=== PATIENT | female | born 1975 | race Caucasian/White ===

== ENCOUNTER → 2016-10-29 | Outpatient (CLI) | payer BC ==
[~2016-10-29] MED LIST: ALBUAER2 INH; BUPR-79 PO; BUTA1CAP17; CLC100 PO; DILT300C35; INSU70IN2 SC; MTR600X PO; OXYC-57 PO; PREN1TAB29; PRENTAB26 PO; RIZA10TA18 PO; SERT25TA PO
[2016-10-29 21:01] LABS: GTGD 50 Grams
[2016-10-31 16:25] LABS: AFP CONCENTRATION 37.9 NG/ML; AFP MULTIPLE OF MEDIAN 1.17; AFPTS GESTATIONAL AGE 16.4 WEEKS; AFPTS INSULIN DEP DIABETIC? NO; AFPTS MATERNAL WT 165 LBS; ALPHA-FETOPROTEIN RACE CAUCASIAN=W; HISTORY OF NTD NO; REPEAT SAMPLE? NO
== END | disposition home or self-care (01) ==
LOC: C.LAB1850 16:59
PROVIDERS: ATTEND Obstetrics & Gynecology
DX: O09.292 Supervision of pregnancy with other poor reproductive or obstetric history, second trimester (principal)

== ENCOUNTER → 2017-01-14 | Outpatient (CLI) | payer BC | END | disposition home or self-care (01) | LOC: C.LAB1850 07:00 | PROVIDERS: ATTEND Obstetrics & Gynecology | DX: O28.1 Abnormal biochemical finding on antenatal screening of mother (principal) ==

== ENCOUNTER → 2017-01-19 | Outpatient (CLI) | payer BC ==
[2017-01-19 17:52] LABS: URINE APPEARANCE CLEAR (CLEAR); URINE BILIRUBIN NEG (NEG); URINE COLOR YELLOW; URINE NITRITE NEG (NEG); URINE SPECIFIC GRAVITY 1.009 (1.000-1.030); UROBILINOGEN NEG (NEG)
[2017-01-19 18:03] LABS: MANUAL MICROSCOPIC REQUIRED? NO; REVIEW REQ? NO
== END | disposition home or self-care (01) ==
LOC: C.LABSPEC 17:33
PROVIDERS: ATTEND Obstetrics & Gynecology
DX: O09.522 Supervision of elderly multigravida, second trimester (principal); O24.419 Gestational diabetes mellitus in pregnancy, unspecified control; O10.012 Pre-existing essential hypertension complicating pregnancy, second trimester; Z3A.00 Weeks of gestation of pregnancy not specified

== ENCOUNTER → 2017-01-19 | Outpatient (CLI) | payer BC ==
[2017-01-19 16:49] LABS: HEMATOCRIT 34.4 % (37-47)
== END | disposition home or self-care (01) ==
LOC: C.LAB1850 15:14
PROVIDERS: ATTEND Obstetrics & Gynecology
DX: Z29.13 Encounter for prophylactic Rho(D) immune globulin (principal); O34.219 Maternal care for unspecified type scar from previous cesarean delivery; O10.412 Pre-existing secondary hypertension complicating pregnancy, second trimester; O09.522 Supervision of elderly multigravida, second trimester; Z3A.00 Weeks of gestation of pregnancy not specified; I15.9 Secondary hypertension, unspecified

== ENCOUNTER → 2017-02-12 | Outpatient (CLI) | payer BC ==
[2017-02-12 12:29] LABS: BASO % 0.2 %; BASO ABS # 0.02 K/uL (0-0.2); COMPLETE YES; EOS % 0.6 %; HEMATOCRIT 38.8 % (37-47); IG% 1.2 %; LYMPH % 19.5 %; LYMPH ABS # 2.45 K/uL (1.2-3.4); MEAN CELL VOLUME 93.3 fL (80-100); MEAN CORPUSCULAR HEMOGLOBIN 31.5 pg (25-34); MEAN CORPUSCULAR HGB CONC 33.8 g/dl (32-36); MEAN PLATELET VOLUME 10.3 fL (7.4-10.4); MONO % 8.9 %; NEUT % 69.6 %; PLATELET COUNT 251 K/uL (130-400); RED BLOOD COUNT 4.16 M/uL (4.2-5.4); WHITE BLOOD COUNT 12.58 K/uL (4.8-10.8)
[2017-02-12 12:58] LABS: CALCIUM 8.9 mg/dl (8.5-10.1)
[2017-02-12 12:59] LABS: ALT/SGPT 26 U/L (12-78); AST/SGOT 18 U/L (15-37); BLOOD UREA NITROGEN 10 mg/dl (7-18); BUN/CREATININE RATIO 16.2 (10-20); CARBON DIOXIDE 24 mmol/L (21-32); CHLORIDE 105 mmol/L (98-107); CREATININE 0.63 mg/dl (0.60-1.20); GLUCOSE 78 mg/dl (70-99); SODIUM 139 mmol/L (136-145)
[2017-02-12 13:01] LABS: ALB/GLOB RATIO 0.5 (0.9-2); ALKALINE PHOSPHATASE 94 U/L (45-117)
== END ==
LOC: C.LAB 10:58
PROVIDERS: ATTEND Nurse Practitioner
DX: R42 Dizziness and giddiness (principal); O24.419 Gestational diabetes mellitus in pregnancy, unspecified control; R25.2 Cramp and spasm; J02.9 Acute pharyngitis, unspecified; M54.5 Low back pain; E83.119 Hemochromatosis, unspecified

== ENCOUNTER → 2017-02-28 | Outpatient (CLI) | payer BC ==
[2017-02-28 08:37] LABS: PATIENT HEIGHT 162.6 cm
[2017-02-28 09:35] LABS: BASO % 0.2 %; BASO ABS # 0.02 K/uL (0-0.2); COMPLETE YES; EOS % 0.6 %; HEMATOCRIT 36.1 % (37-47); IG% 1.4 %; LYMPH % 19.6 %; LYMPH ABS # 2.11 K/uL (1.2-3.4); MEAN CELL VOLUME 91.4 fL (80-100); MEAN CORPUSCULAR HEMOGLOBIN 31.9 pg (25-34); MEAN CORPUSCULAR HGB CONC 34.9 g/dl (32-36); MEAN PLATELET VOLUME 9.7 fL (7.4-10.4); MONO % 7.8 %; NEUT % 70.4 %; PLATELET COUNT 233 K/uL (130-400); RED BLOOD COUNT 3.95 M/uL (4.2-5.4); WHITE BLOOD COUNT 10.78 K/uL (4.8-10.8)
[2017-02-28 09:51] LABS: CREATININE 0.69 mg/dl (0.60-1.20)
[2017-02-28 10:21] LABS: URINE TOTAL PROTEIN 10.1 mg/dl (0-11.9)
[2017-02-28 12:15] LABS: CREATININE 0.69 mg/dl (0.6-1.2)
== END ==
LOC: C.LAB1850 08:26
PROVIDERS: ATTEND Obstetrics & Gynecology
DX: O10.913 Unspecified pre-existing hypertension complicating pregnancy, third trimester (principal)

== ENCOUNTER → 2017-03-09 | Outpatient (CLI) | payer BC ==
[2017-03-09 17:36] LABS: BASO % 0.2 %; BASO ABS # 0.02 K/uL (0-0.2); COMPLETE YES; EOS % 0.5 %; HEMATOCRIT 38.1 % (37-47); LYMPH % 25.5 %; LYMPH ABS # 3.05 K/uL (1.2-3.4); MEAN CELL VOLUME 90.9 fL (80-100); MEAN CORPUSCULAR HGB CONC 34.1 g/dl (32-36); MEAN PLATELET VOLUME 10.2 fL (7.4-10.4); MONO % 11.2 %; NEUT % 61.6 %; PLATELET COUNT 245 K/uL (130-400); RED BLOOD COUNT 4.19 M/uL (4.2-5.4); WHITE BLOOD COUNT 11.94 K/uL (4.8-10.8)
[2017-03-09 17:43] LABS: CREATININE 0.64 mg/dl (0.60-1.20); URIC ACID 3.8 mg/dl (2.6-7.2)
[2017-03-09 17:47] LABS: ALKALINE PHOSPHATASE 138 U/L (45-117); ALT/SGPT 22 U/L (12-78); AST/SGOT 20 U/L (15-37)
== END ==
LOC: C.LAB1850 16:21
PROVIDERS: ATTEND Obstetrics & Gynecology
DX: O10.913 Unspecified pre-existing hypertension complicating pregnancy, third trimester (principal); Z3A.00 Weeks of gestation of pregnancy not specified

== ENCOUNTER → 2017-03-17 | Outpatient (CLI) | payer BC | END | disposition home or self-care (01) | LOC: C.LABSPEC 15:20 | PROVIDERS: ATTEND Obstetrics & Gynecology | DX: O24.414 Gestational diabetes mellitus in pregnancy, insulin controlled (principal); Z3A.00 Weeks of gestation of pregnancy not specified; Z79.4 Long term (current) use of insulin ==

== ENCOUNTER → 2017-03-17 | Outpatient (CLI) | payer BC ==
[2017-03-17 15:17] LABS: HEMATOCRIT 37.8 % (37-47); MEAN CELL VOLUME 89.8 fL (80-100); MEAN CORPUSCULAR HEMOGLOBIN 31.1 pg (25-34); MEAN CORPUSCULAR HGB CONC 34.7 g/dl (32-36); MEAN PLATELET VOLUME 9.9 fL (7.4-10.4); PLATELET COUNT 245 K/uL (130-400); RED BLOOD COUNT 4.21 M/uL (4.2-5.4)
[2017-03-17 15:38] LABS: ALT/SGPT 24 U/L (12-78); AST/SGOT 20 U/L (15-37); BLOOD UREA NITROGEN 12 mg/dl (7-18); BUN/CREATININE RATIO 18.4 (10-20); CALCIUM 9.5 mg/dl (8.5-10.1); CARBON DIOXIDE 24 mmol/L (21-32); CHLORIDE 107 mmol/L (98-107); CREATININE 0.65 mg/dl (0.60-1.20); GLUCOSE 73 mg/dl (70-99); POTASSIUM 3.7 mmol/L (3.5-5.1); SODIUM 139 mmol/L (136-145)
[2017-03-17 15:41] LABS: ALB/GLOB RATIO 0.6 (0.9-2); ALKALINE PHOSPHATASE 159 U/L (45-117)
== END | disposition home or self-care (01) ==
LOC: C.LAB1850 14:20
PROVIDERS: ATTEND Obstetrics & Gynecology
DX: O10.913 Unspecified pre-existing hypertension complicating pregnancy, third trimester (principal); Z3A.00 Weeks of gestation of pregnancy not specified; O24.414 Gestational diabetes mellitus in pregnancy, insulin controlled; Z79.4 Long term (current) use of insulin

== ENCOUNTER → 2017-03-25 | Outpatient (CLI) | payer BC ==
[2017-03-25 15:38] LABS: BASO % 0.2 %; BASO ABS # 0.03 K/uL (0-0.2); COMPLETE YES; EOS % 0.2 %; HEMATOCRIT 38.5 % (37-47); IG% 0.9 %; LYMPH % 18.7 %; MEAN CELL VOLUME 89.7 fL (80-100); MEAN CORPUSCULAR HGB CONC 34.5 g/dl (32-36); MEAN PLATELET VOLUME 10.1 fL (7.4-10.4); MONO % 8.7 %; NEUT % 71.3 %; PLATELET COUNT 226 K/uL (130-400); RED BLOOD COUNT 4.29 M/uL (4.2-5.4)
[2017-03-25 16:08] LABS: ALKALINE PHOSPHATASE 167 U/L (45-117); ALT/SGPT 24 U/L (12-78); AST/SGOT 24 U/L (15-37); URIC ACID 3.8 mg/dl (2.6-7.2)
== END | disposition home or self-care (01) ==
LOC: C.LAB1850 14:22
PROVIDERS: ATTEND Obstetrics & Gynecology
DX: O10.913 Unspecified pre-existing hypertension complicating pregnancy, third trimester (principal)

== ENCOUNTER 2017-04-01 13:43 | Outpatient (CLI) | payer BC ==
[~2017-04-01 13:43] MED LIST changes: -BUTA1CAP17; -CLC100 PO; -DILT300C35; -INSU70IN2 SC; -MTR600X PO; -OXYC-57 PO; -PREN1TAB29; -SERT25TA PO
[2017-04-01] MEDS ORDERED: BUTALBITAL/ACETAMIN/CAFFEINE TAB PO ONE (15:00)
[2017-04-08] MEDS ORDERED: MTR600X PO (07:38)
[2017-04-08] MEDS ORDERED: OXYC-57 PO (07:38)
[2017-04-08] MEDS ORDERED: CLC100 PO (07:38)
== END 2017-04-01 15:30 | disposition home or self-care (01) ==
LOC: C.LD 13:43 → C.OPB 13:43
PROVIDERS: ATTEND Obstetrics & Gynecology
DX: O09.523 Supervision of elderly multigravida, third trimester (principal); Z3A.38 38 weeks gestation of pregnancy; O16.3 Unspecified maternal hypertension, third trimester; O24.419 Gestational diabetes mellitus in pregnancy, unspecified control

== ENCOUNTER → 2017-04-01 | Outpatient (CLI) | payer BC ==
[2017-04-01 16:17] LABS: HEMATOCRIT 39.6 % (37-47); MEAN CORPUSCULAR HEMOGLOBIN 31.1 pg (25-34); MEAN PLATELET VOLUME 10.4 fL (7.4-10.4); PLATELET COUNT 219 K/uL (130-400); WHITE BLOOD COUNT 12.98 K/uL (4.8-10.8)
[2017-04-01 16:42] LABS: MEAN CORPUSCULAR HGB CONC 34.6 g/dl (32-36)
[2017-04-01 17:08] LABS: ALB/GLOB RATIO 0.5 (0.9-2); ALKALINE PHOSPHATASE 178 U/L (45-117); ALT/SGPT 23 U/L (12-78); AST/SGOT 21 U/L (15-37); BLOOD UREA NITROGEN 10 mg/dl (7-18); BUN/CREATININE RATIO 13.3 (10-20); CALCIUM 8.9 mg/dl (8.5-10.1); CARBON DIOXIDE 21 mmol/L (21-32); CHLORIDE 106 mmol/L (98-107); CREATININE 0.79 mg/dl (0.60-1.20); GLUCOSE 81 mg/dl (70-99); SODIUM 138 mmol/L (136-145)
== END | disposition home or self-care (01) ==
LOC: C.LAB1850 15:38
PROVIDERS: ATTEND Obstetrics & Gynecology
DX: O10.913 Unspecified pre-existing hypertension complicating pregnancy, third trimester (principal)

== ENCOUNTER → 2017-04-06 | Outpatient (CLI) | payer BC ==
[~2017-04-06] MED LIST changes: +BUTA1CAP17; +CLC100 PO; +DILT300C35; +INSU70IN2 SC; +MTR600X PO; +OXYC-57 PO; +PREN1TAB29; +SERT25TA PO
== END | disposition home or self-care (01) ==
LOC: C.LAB1850 15:25
PROVIDERS: ATTEND Obstetrics & Gynecology
DX: Z01.818 Encounter for other preprocedural examination (principal)

== ENCOUNTER 2017-04-07 05:25 | Inpatient (IN) | payer BC ==
--- NOTE | 2017-04-06 16:25 | HISTORY & PHYSICAL EXAMINATION ---
DATE OF ADMISSION: 04/07/2017 PRINCIPAL DIAGNOSES: Intrauterine at 39 weeks, insulin controlled gestational diabetes, maternal chronic hypertension, migraine headaches. PRINCIPAL PROCEDURE: Repeat low transverse cervical section. HISTORY OF PRESENT ILLNESS: The patient is a 41-year-old 3, para 1-0-1-1 white female, EDC of 04/17/2017 who presents at 39-2/7 weeks for repeat section. First section was done in 1995 because of a breech presentation. She is requesting repeat section at this time. had been complicated by insulin controlled gestational diabetes and chronic hypertension prior to the . She also has a history of migraine headaches which have now started to become more poorly controlled with recent meds. She understands the risks of procedure and is willing to proceed. 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 ALLERGIES: AMLODIPINE WHICH CAUSES SWELLING. MEDICATIONS: Diltiazem 300 mg at bedtime, Wellbutrin-SR 150 mg b.i.d. sertraline 25 mg every day, vitamin and Novolin insulin. PAST SURGICAL HISTORY: D&C in 2016, section in 1995 and wisdom teeth removed as a child. HISTORY: Blood type is A negative, antibody screen is negative. Rubella is immune. RPR is nonreactive. Hepatitis is negative. HIV is negative. Hemoglobin at 28 weeks' was 12.3, hematocrit of 34.4, Panorama was normal results. Ultrasounds have been done for growth, most recent growth shows an abdominal circumference of 82 percentile, estimated weight of 68th percentile, AFIs have been within normal limits. Nonstress tests have been reactive. GBS is negative. SOCIAL HISTORY: She does not smoke or drink. FAMILY HISTORY: Noncontributory. OBSTETRICAL AND GYNECOLOGICAL HISTORY: Periods have been regular every 29 days. No history of PID, VD or herpes. Pap smears have been within normal limits. in 1995, delivered by section because of a breech presentation of a 6 pound 7 ounce infant without complications. In 2015 a miscarriage which was treated with a D&E at 8 weeks. PHYSICAL EXAMINATION: VITAL SIGNS: Blood pressure is 132/84. Urine is negative for proteinuria. GENERAL: The patient is a well-developed, well-nourished white female in no apparent distress. LUNGS: Clear to auscultation. HEART: Regular rate and rhythm. No murmurs or gallops. ABDOMEN: Gravid and consistent with a term in size. Fundal heights measuring 39 cm. There is no hepatosplenomegaly or masses palpable. She has a well-healed low transverse skin incision. EXTREMITIES: Show 1+ edema of the ankles. No calf tenderness is present. PELVIC: Deferred. ASSESSMENT: A 41-year-old now for repeat section. Prior section was done for breech presentation. She understands the risks of procedure and is willing to proceed. All her questions were answered at the time of her preoperative visit. Please see the orders for further directions.
[2017-04-07] VITALS (12 sets, daily range): BP systolic 117–137; BP diastolic 62–77; PULSE 61–72; TEMP 36.5–36.9; O2SAT 96–99; Ht 160 cm; Wt 85.5 kg
[~2017-04-07] VITALS: Ht 160 cm; Wt 85.5 kg
[~2017-04-07 05:25] MED LIST changes: -BUTA1CAP17; -CLC100 PO; -DILT300C35; -INSU70IN2 SC; -MTR600X PO; -OXYC-57 PO; -PREN1TAB29; -SERT25TA PO
[2017-04-07 05:52] LABS: BASO % 0.4 %; BASO ABS # 0.05 K/uL (0-0.2); EOS % 0.5 %; HEMATOCRIT 42.6 % (37-47); LYMPH % 26.6 %; LYMPH ABS # 3.28 K/uL (1.2-3.4); MEAN CELL VOLUME 89.1 fL (80-100); MEAN CORPUSCULAR HEMOGLOBIN 29.1 pg (25-34); MEAN PLATELET VOLUME 9.8 fL (7.4-10.4); MONO % 6.6 %; NEUT % 64.9 %; PLATELET COUNT 244 K/uL (130-400); RED BLOOD COUNT 4.78 M/uL (4.2-5.4); WHITE BLOOD COUNT 12.31 K/uL (4.8-10.8)
[2017-04-07 05:58] LABS: COMPLETE YES; MEAN CORPUSCULAR HGB CONC 32.6 g/dl (32-36)
[2017-04-07] MEDS ORDERED: CEFAZOLIN IV 2,000 MG in DEXTROSE 5% 50ML IV SCH (06:00)
[2017-04-07] MEDS ORDERED: LACTATED RINGER'S 1000ML 1,000 ML IV SCH (06:00)
[2017-04-07] MEDS ORDERED: CITRIC ACID/SODIUM CITRATE 15 ML UDC PO SCH (06:00)
[2017-04-07] MEDS ORDERED: INSU70IN2 SC (06:21)
[2017-04-07] MEDS ORDERED: DILT300C35 (06:25)
[2017-04-07] MEDS ORDERED: SERT25TA PO (06:25)
[2017-04-07] MEDS ORDERED: PREN1TAB29 (06:25)
[2017-04-07] MEDS ORDERED: BUTA1CAP17 (06:25)
[2017-04-07] MEDS ORDERED: ATROPINE SULFATE 0.1 MG/ML 5ML SYR IV PRN (07:15)
[2017-04-07] MEDS ORDERED: EpHEDrine SULFATE INJ 50 MG/ML AMP IV PRN ×2 (07:15→09:00)
[2017-04-07] MEDS ORDERED: FENTANYL CITRATE INJ 50 MCG/1 ML 2 ML VIAL IV PRN (07:15)
[2017-04-07] MEDS ORDERED: ONDANSETRON INJ 2 MG/ML 2 ML VIAL IV PRN ×2 (07:15→09:00)
[2017-04-07] MEDS ORDERED: OXYTOCIN INJ 10 UNITS/ML VIAL ONE (07:17)
[2017-04-07] MEDS ORDERED: MoRPHine SULFATE PF 1 MG/ML 10 ML AMP/VIAL ONE (07:17)
[2017-04-07] MEDS ORDERED: ONDANSETRON INJ 2 MG/ML 2 ML VIAL ONE (07:17)
[2017-04-07] MEDS ORDERED: FENTANYL CITRATE INJ 50 MCG/1 ML 2 ML VIAL ONE (07:17)
--- NOTE | 2017-04-07 07:18 | History & Physical Bridge Note ---
H&P Re-Evaluation Bridge Note: I have examined the patient, reviewed the History & Physical and in the interval since the performance of the History & Physical I have noted the following changes of clinical significance: No changes noted
[2017-04-07] MEDS ORDERED: PHENYLEPHRINE 100MCG/ML 5ML SYR ONE (08:04)
[2017-04-07] MEDS ORDERED: LANOLIN OINT EXT PRN ×2 (08:45)
[2017-04-07] MEDS ORDERED: MAGNESIUM HYDROXIDE SUSP 30 ML UDC PO PRN (08:45)
[2017-04-07] MEDS ORDERED: SENNA 8.6 MG TAB PO PRN (08:45)
[2017-04-07] MEDS ORDERED: ALBUTEROL HFA 8 GM INHALER INH PRN (08:45)
--- NOTE | 2017-04-07 08:48 | Medical Student: [facility] ---
Immediate Operative Summary Operative Date Apr 07, 2017. Pre-Operative Diagnosis IUP at 39-2/7 weeks, hx of C/S, HTN, insulin controlled GDM Post-Operative Diagnosis Same Procedure(s) Performed repeat lower transverse Section Surgeon Aleisha Leiva Drama Professor Surgeon(s) Nirav London M.D., Brittany Bradshaw MS3 Estimated Blood Loss 500 cc Findings Normal uterus, fallopian tubes, and ovaries bilaterally. Delivery of baby girl with scores of 9 and 10 weighing 7 lbs 6 oz. Fluids (cc crystalloids) 1300 cc Specimens Placenta and cord blood Drains 100 cc urine Anesthesia Spinal Complication(s) None Disposition L&D
--- NOTE | 2017-04-07 08:51 | [facility] Post Operative Brief Note ---
Immediate Operative Summary Operative Date Apr 07, 2017. Pre-Operative Diagnosis 39week IUP, insulinGDM, chronic HTN, previous C/S Post-Operative Diagnosis same+ delivery or a 7 lbs 6 ozs viable female Procedure(s) Performed repeat LTCS Surgeon Juliet Scott MD Customs And Immigration Officer Surgeon(s) Krishna oLndon PGY1 Estimated Blood Loss 500 Findings gravid uterus normal tubes & ovaries Fluids (cc crystalloids) 1300 Specimens Placenta Drains Nuñez to straight drainage- clear urine at the end of the case Anesthesia SAB Complication(s) None Disposition L&D
[2017-04-07] MEDS ORDERED: NO NARCOTICS OR SEDATIVES SCH (09:00)
[2017-04-07] MEDS ORDERED: NALOXONE HCL INJ 1 MG in SODIUM CHLORIDE 0.9% 1000ML 1,000 ML IV PRN (09:00)
[2017-04-07] MEDS ORDERED: DiphenhydrAMINE HCL 50 MG/ML VIAL IV PRN (09:00)
[2017-04-07] MEDS ORDERED: LACTATED RINGER'S 1000ML 500 ML IV PRN (09:00)
[2017-04-07] MEDS ORDERED: NALOXONE HCL 0.4 MG/1 ML VIAL/CARP IV PRN (09:00)
[2017-04-07] MEDS ORDERED: SODIUM CHLORIDE 0.9% 1000ML 1,000 ML IV PRN (09:00)
[2017-04-07] MEDS ORDERED: NALOXONE HCL INJ 0.08 MG in SYRINGE 1.8 ML IV PRN (09:00)
[2017-04-07] MEDS ORDERED: NALBUPHINE HCL INJ 10 MG/ML AMP IV PRN (09:00)
[2017-04-07] MEDS ORDERED: MoRPHine SULFATE PF 1 MG/ML 10 ML AMP/VIAL EPI PRN (09:00)
--- NOTE | 2017-04-07 09:02 | Anesthesiology Progress Note ---
Anesthesia Post Op Note Date & Time Apr 07, 2017 at 09:01 Notes Mental Status: alert / awake / arousable, participated in evaluation Pt Amnestic to Procedure: Yes Nausea / Vomiting: adequately controlled Pain: adequately controlled Airway Patency, RR, SpO2: stable & adequate BP & HR: stable & adequate Hydration State: stable & adequate Neuraxial Anesthesia: was administered, sensory block is resolving Anesthetic Complications: no major complications apparent
[2017-04-07] MEDS: OXYTOCIN INJ 20 UNITS in LACTATED RINGER'S 1000ML 1,000 ML IV SCH ×2 (10:32→19:38)
[2017-04-07] MEDS: KETOROLAC TROMETHAMINE 30 MG/ML VIAL IV. PRN ×2 (10:41→16:09)
--- NOTE | 2017-04-07 11:52 | OPERATIVE REPORT ---
DATE OF OPERATION: 04/07/2017 PREOPERATIVE DIAGNOSES: Intrauterine at 39 weeks, insulin controlled gestational diabetes, chronic hypertension and previous section. POSTOPERATIVE DIAGNOSIS: Same plus delivery of a viable female infant, 7 pounds 6 ounces, Apgars 9 and 10. PROCEDURE: Repeat low transverse cervical section. SURGEON: Dr. Juliet Scott. AUTOMOTIVE PARTS COORDINATOR: Dr. Krishna London, PGY1 and Ingris Bradshaw, medical student year 3. ANESTHESIA: Subarachnoid block. BLOOD LOSS: 500 mL. HISTORY OF PRESENT ILLNESS: The patient is a 41-year-old 3, para 1-0-1-1 white female, EDC of 04/17/2017 who presents at 39-2/7 weeks for repeat section. First section was done in 1995 because of breech presentation. She is requesting repeat section at this time. She understands the risks of procedure and is willing to proceed. GROSS FINDINGS: Uterus is gravid and consistent with a term in size. Bilateral ovaries and fallopian tubes are grossly normal. OPERATION AND FINDINGS: PROCEDURE: After the patient received adequate subarachnoid block, she was prepped and draped in the usual sterile fashion. A low transverse skin incision was made with the scalpel and carried to the fascia with the same scalpel. The fascial incision was then extended with Skinner scissors. The edges were grasped with Karthik clamps. The underlying rectus muscle was bluntly and sharply dissected off the overlying fascia. The rectus muscles were bluntly divided in the midline and the underlying peritoneum elevated and entered sharply. The bladder was then taken down off the anterior surface of the uterus with Metzenbaum scissors and placed behind the bladder blade. The lower uterine segment was entered with the scalpel and extended transversely. Membranes are ruptured for clear fluid. The infant was delivered from the vertex presentation with moderate fundal pressure. There was spontaneous cry upon delivery of the head. Mouth and nasopharynx were suctioned and then the rest of the infant was delivered without difficulty. Cord was clamped and cut and the infant was handed off to Dr. Robles who was in attendance as box builder. The placenta was then expressed intact with a 3-vessel cord. The uterine cavity was explored and found to be free of any placental tissue or membranes. Uterus was exteriorized and covered under clean lap sponge. After exploring the uterine cavity and found to be free of any tissue or clot the uterus was closed in 2 layers in a running locking imbricating fashion with 0 Monocryl. Hemostasis was noted to be excellent. The posterior cul-de-sac was irrigated with normal saline. The incision was then examined once more and continued to have excellent hemostasis. The gutters were checked for any clot or tissue and they were clear. The uterus was placed back inside the abdominal cavity. The incision was examined for a final time and continued to have excellent hemostasis. The anterior cul-de-sac was irrigated with normal saline. The rectus muscles were closed in the midline with 0 Monocryl. The fascia was closed in a running fashion with 0 Vicryl. The skin edges reapproximated using 4-0 Vicryl in a subcuticular manner after irrigating the adipose layer. Mother and infant tolerated the procedure well. Urine was clear at the end of the case. I attest to the content of the Intraoperative Record and any orders documented therein. Any exception s are noted below.
[2017-04-07] MEDS: SIMETHICONE 80 MG CHEW PO SCH ×3 (12:00→20:03)
[2017-04-07] MEDS: MEPERIDINE HCL 25 MG/ML CARP IV PRN ×2 (12:21→20:00)
[2017-04-07] MEDS ORDERED: NURSING VERBAL MED ORDER ONE (18:15)
[2017-04-07] MEDS: DOCUSATE SODIUM 100 MG CAP PO SCH (20:03)
[2017-04-07] MEDS: DILTIAZEM HCL (TIAzac) 180 MG CAPCR PO SCH (20:03)
[2017-04-07] MEDS: DILTIAZEM HCL 120 MG EXT REL CAP PO SCH (20:03)
[2017-04-08] MEDS: ONDANSETRON INJ 2 MG/ML 2 ML VIAL IV PRN ×2 (01:29→06:28)
[2017-04-08] MEDS: IBUPROFEN 600 MG TAB PO PRN ×6 (01:37→22:19)
[2017-04-08] MEDS: OXYCODONE/ACETAMINOPHEN 5-325 TAB PO PRN ×6 (01:38→22:20)
[2017-04-08] MEDS ORDERED: PROMETHAZINE HCL INJ 25 MG in SODIUM CHLORIDE 0.9% 50ML 50 ML IV PRN (01:45)
[2017-04-08] MEDS ORDERED: MEPERIDINE HCL 50 MG/ML CARP IV PRN ×2 (01:45)
[2017-04-08] MEDS ORDERED: DC INTRASPINAL MORPHINE ONE (01:45)
[2017-04-08] MEDS ORDERED: ZOLPIDEM TARTRATE 5 MG TAB PO PRN (01:45)
[2017-04-08] MEDS ORDERED: KETOROLAC TROMETHAMINE 30 MG/ML VIAL IV. PRN (01:45)
[2017-04-08] MEDS ORDERED: DiphenhydrAMINE HCL 50 MG/ML VIAL IV PRN (01:45)
[2017-04-08 04:15] VITALS: BP 113/53; PULSE 72; TEMP 36.8; O2SAT 96
--- NOTE | 2017-04-08 06:43 | Medical Student: [facility] ---
Med Student INSERTER PROMOTIONAL ITEM Progress Nt Date of Service Apr 08, 2017. Subjective conversation w/ patient, physical exam, lab review Ambulation: limited ambulation Voiding: snyder catheter in place Passing Gas: Yes Diet Tolerance: Regular Diet, Nausea/Vomiting (nausea, no vomiting) Lochia: Small Feeding Type: Bottle Feeding Notes: Hailey is a 41-year-old with a history of insulin controlled gestational diabetes, chronic hypertension, and migraines postoperative day 1 for lower transverse Section. She says that she had a "rough night" due to abdominal pain, dizziness, and headaches. She reports that she has always had migraines, and today her headache is behind her right eye. Prior to , her headaches were treated with Topamax, but she was treated with Floricet prenatally. Floricet has been "somewhat helpful" for her. Yesterday she was hypoglycemic with a rojas of 60. Currently she says "I don't feel myself, but I could just be hungry." Hailey voiced concern about depression and said that she has already begun taking Zoloft at 25 mg and will titrate up to 50 mg this Tuesday. She said that she wants to continue with this antidepressant as well as return to her pre- dosages of her other medications. Review of Systems Constitutional: + chills, No fever Respiratory: No shortness of breath Cardiac: No chest pain, No palpitations Breast: No problem reported Abdomen: + nausea, No vomiting Objective Vital Signs Date Time Temp Pulse Resp B/P (MAP) Pulse Ox O2 Delivery O2 Flow Rate FiO2 04/08/17 04:15 36.8 72 16 113/53 (73) 96 Room Air 04/07/17 23:40 16 98 04/07/17 23:40 36.8 72 18 124/62 (82) 98 Room Air 04/07/17 23:40 98 Room Air 04/07/17 21:17 18 98 04/07/17 21:16 36.6 71 16 128/71 (90) 98 Room Air 04/07/17 18:00 20 98 04/07/17 17:00 22 96 04/07/17 16:00 36.6 61 20 133/77 (95) 99 Room Air 04/07/17 16:00 99 Room Air 04/07/17 16:00 20 99 04/07/17 14:50 18 98 04/07/17 14:50 36.9 68 18 123/74 (90) 98 Room Air 04/07/17 13:50 20 99 04/07/17 13:50 36.5 69 20 132/72 (92) 97 Room Air 04/07/17 12:50 36.8 66 18 117/66 (83) 98 Room Air 04/07/17 12:20 18 99 04/07/17 12:20 36.6 67 18 137/71 (93) 99 Room Air 04/07/17 11:50 36.7 68 18 137/69 (91) 97 Room Air 04/07/17 11:15 18 99 04/07/17 11:15 99 Room Air 04/07/17 11:15 36.7 66 18 136/77 (96) 99 Room Air Physical Exam General Appearance: uncomfortable, in pain Respiratory/Chest: lungs clear, normal breath sounds Cardiovascular: regular rate, rhythm, no gallop, + systolic murmur Abdomen: normal bowel sounds, + tenderness (lower quadrants) Fundus: Firm, Relation to Umbilicus (2 finger breadths above the umbilicus) Extremities: no pedal edema Laboratory Results Last 24 Hours Test 04/07/17 16:28 04/07/17 16:39 04/07/17 16:57 04/07/17 17:21 Bedside Glucose 57 mg/dl 60 mg/dl 78 mg/dl 79 mg/dl Test 04/07/17 17:49 04/08/17 01:25 04/08/17 06:00 Bedside Glucose 102 mg/dl 125 mg/dl Assessment and Plan Post-Op Day Number: 1 Continue Routine Care: Hailey is a 41-year-old with a history of insulin controlled gestational diabetes, chronic hypertension, and migraines postoperative day 1 for lower transverse Section. - Continue routine care - Encourage ambulation today - Remove Snyder catheter - Encourage fluid intake - Discuss medication changes for the period
--- NOTE | 2017-04-08 06:56 | Progress Note ---
Subjective Apr 08, 2017. Subjective conversation w/ patient, physical exam Ambulation: limited ambulation Voiding: snyder catheter in place Passing Gas: Yes Diet Tolerance: NPO Lochia: Small Feeding Type: Bottle Feeding Pain: moderate, controlled [facility] pain meds Comment: Patient says she had a rough night as she felt dizzy, had a headache and felt nauseated. She typically takes topamax for her migraines but during her has been taking fioricet which has been controlling her migraines adequately. She did have a glucose level of 60 yesterday afternoon but that has improved overnight. Her most recent glucose level was 125. She says that she will most likely feel better after she has eaten this morning. She has a history of depression and has started zoloft post and will be increasing dose to 50mg on Tuesday. Review of Systems Constitutional: + chills, + weakness, No fever, No sweats Respiratory: No cough, No shortness of breath Cardiac: No chest pain, No edema, No palpitations Breast: No nipple discharge, No breast pain Abdomen: + pain, + nausea, + constipation, No vomiting migraine headache Objective Vital Signs Date Time Temp Pulse Resp B/P (MAP) Pulse Ox O2 Delivery O2 Flow Rate FiO2 04/08/17 04:15 36.8 72 16 113/53 (73) 96 Room Air 04/07/17 23:40 16 98 04/07/17 23:40 36.8 72 18 124/62 (82) 98 Room Air 04/07/17 23:40 98 Room Air 04/07/17 21:17 18 98 04/07/17 21:16 36.6 71 16 128/71 (90) 98 Room Air 04/07/17 18:00 20 98 04/07/17 17:00 22 96 04/07/17 16:00 36.6 61 20 133/77 (95) 99 Room Air 04/07/17 16:00 99 Room Air 04/07/17 16:00 20 99 04/07/17 14:50 18 98 04/07/17 14:50 36.9 68 18 123/74 (90) 98 Room Air 04/07/17 13:50 20 99 04/07/17 13:50 36.5 69 20 132/72 (92) 97 Room Air 04/07/17 12:50 36.8 66 18 117/66 (83) 98 Room Air 04/07/17 12:20 18 99 04/07/17 12:20 36.6 67 18 137/71 (93) 99 Room Air 04/07/17 11:50 36.7 68 18 137/69 (91) 97 Room Air 04/07/17 11:15 18 99 04/07/17 11:15 99 Room Air 04/07/17 11:15 36.7 66 18 136/77 (96) 99 Room Air Physical Exam General Appearance: WELL-APPEARING, NO APPARENT DISTRESS Respiratory/Chest: lungs clear, no accessory muscle use Cardiovascular: regular rate, rhythm, + systolic murmur (heard throughout) Abdomen: normal bowel sounds, soft Fundus: Firm, Non-Tender, Relation to Umbilicus (2 cm above umbilicus) Incision Description: Clean, Dry & Intact (had wrap over wound, will check wound later this morning after receiving pain meds) Laboratory Results Last 24 Hours Test 04/07/17 16:28 04/07/17 16:39 04/07/17 16:57 04/07/17 17:21 Bedside Glucose 57 mg/dl 60 mg/dl 78 mg/dl 79 mg/dl Test 04/07/17 17:49 04/08/17 01:25 04/08/17 06:00 Bedside Glucose 102 mg/dl 125 mg/dl Assessment and Plan Post-Op Day#: 1 Continue Routine Care: Resident Physician Supervision Note: I interviewed and examined the patient. Discussed with Dr. London and agree with findings and plan as documented in the note. Any exceptions or clarifications are listed here: [None] Documented By: Juliet Scott C Section Day 1 Vitals reviewed and stable A-, GBS-, Rubella immune (will receive Rhogam this morning as baby Rhesus +) Hgb 13.9 yesterday Pain controlled with percocet Remove snyder this am, have meal, ambulate and monitor lochia Monitor glucose levels and blood pressure CONTINUE ROUTINE POST C SECTION CARE Meds: Zoloft and Wellbutrin for depression Diltiazem for HTN Albuterol for Asthma Zofran for nausea Percocet for pain
[2017-04-08 07:38] VITALS: BP 129/56; PULSE 63; TEMP 37.1; O2SAT 96
[2017-04-08] MEDS ORDERED: CLC100 PO (07:38)
[2017-04-08] MEDS ORDERED: OXYC-57 PO (07:38)
[2017-04-08] MEDS ORDERED: MTR600X PO (07:38)
[2017-04-08 07:39] LABS: HEMATOCRIT 36.3 % (37-47)
--- NOTE | 2017-04-08 07:39 | Discharge Instructions ---
Discharge Instructions Date of Service Apr 08, 2017. Admission Reason for Admission: Previous Section Discharge Discharge Diagnosis / Problem: recovery from section Discharge Goals Goal(s): Routine recovery after Medications Continue Dispensed Medications: inhaler Activity Recommendations Activity Limitations: per Instructions/Follow-up section . Instructions / Follow-Up Instructions / Follow-Up ACTIVITY RECOMMENDATIONS: * Gradual return to full activity over the next 2-3 weeks. * No lifting - nothing heavier than baby over the next 2-3 weeks. * Do not engage in vigorous exercise, sexual activity or sports until cleared by your physician. * Do not drive or operate any motorized equipment until cleared by your physician. * You may shower/bathe daily. MEDICATIONS: For discomfort or pain, you may use Acetaminophen (Tylenol), Ibuprofen (Advil), or Naproxen (Aleve) following the package directions. For constipation you may use Colace following the package directions. BREAST CARE: If you are not breast feeding: * Wear a supportive bra 24 hours a day for one to two weeks. * Avoid stimulating your breasts and nipples as much as possible during the first few weeks after delivery. * When taking a shower, have the warm water hit your back, not breasts. * When your breasts feel full, apply ice packs. Usually three to four times a day helps ease the discomfort. * Take a mild pain medication (Tylenol / Motrin) when you are uncomfortable. If breast feeding: * Use breast milk to lubricate nipples. Lansinoh cream may be used for sore nipples. You do not need to remove cream prior to breast feeding. If using a different brand of cream, check the label for directions regarding removal of cream prior to nursing. * Wear a supportive bra. * If having problems with breasts or breast feeding, call a risk and insurance consultant or your health care provider. SPECIAL CARE INSTRUCTIONS: When you are discharged from the hospital, it is important for you to follow the instructions listed below: * During the first week at home, you should be able to care for yourself and your baby. In addition, the usual light household activities are encouraged. * Limit your activities to the way you feel. Do not try to clean the house or move furniture. Be sensible. * If you actively engage in sports and have done so up until the time of your delivery, you may resume these activities as soon as you feel able. This may take up to one month or even longer. Use good judgment. * Continue to take your vitamins for at least six weeks after the of your baby. * Your diet need not be limited unless you were on a special diet before your delivery. Breast-feeding mothers need around 2500 calories per day and at least 64-80 ounces of fluid per day (8 to 10 glasses). * You should eat foods from the four major food groups. Crash diets or fad diets are to be avoided. Eating lean meats, fresh fruits and vegetables, low-fat dairy products, high fiber foods and a regular exercise program, will help you get back to your pre- weight without putting your health at risk. * Constipation is sometimes a problem after delivery. Take a mild laxative as needed. If breast feeding, Milk of Magnesia is acceptable to use. You may use a suppository or Fleets enema. * A daily shower or tub bath is suggested. Wash incision daily with warm soapy water and pat dry. It doesn't need to be covered unless drainage is present. * A bloody vaginal discharge will usually continue until around four weeks . A small amount of bleeding may continue for as long as six weeks. Vaginal discharge changes from the bright red bleeding after delivery to pink then brownish and finally yellowish-pink before becoming white and disappearing. * Bleeding may increase with activity. Your first period may come in 4-8 weeks. If you are breast feeding, your period may be delayed even longer. * [place] (sex) can begin whenever both you and your partner feel comfortable and do not have any form of genital infection. It is recommended that you wait at least six weeks for internal and external healing to occur. If you have questions, please talk to your health care practitioner. A condom should be used to prevent infection and . * Foreplay, gentle intercourse and lubrication is very important the first several times to prevent pain. A water-based lubricant such as K-Y jelly or Astroglide may be used. * If you have RH negative blood and your baby is RH positive, you will receive RHOGAM by injection prior to discharge. The nurse will give you a card to keep with you that has the date and place that you received RHOGAM after delivery. * During your care, you had a Rubella screen done to check for the presence of rubella antibodies in your blood. If your test was negative, you will receive a Rubella vaccine prior to discharge. This vaccine may cause a fever, soreness at the injection site and flu-like symptoms. If these symptoms persist, notify your health care practitioner. is not advised for one month after a Rubella vaccine. * Verbalizes understanding of car seat law as reviewed with patient nursing. * Car Seat hand-out given and reviewed with patient by nursing. * Shaken baby information reviewed with patient by nursing. Call you doctor if: * Heavy bleeding (saturating several pads an hour) or passing clots the size of your fist. * A fever >101 degrees F (38.3 degrees C) on two occasions four hours apart and /or chills. * Unusual pain in the pelvic or vaginal areas. * Call the doctor for any increased redness, drainage or swelling around the incision and any pain unrelieved by prescribed pain medication. * "Baby Blues" lasting longer than two weeks. If you have any questions or concerns, call your health care practitioner at . FOLLOW UP VISIT: * Please call the office at to schedule a 6 week examination. It is important you keep this appointment. It is important for you to make arrangements for either yearly or twice yearly check-ups thereafter. Current Hospital Diet Patient's current hospital diet: Regular Diet Discharge Diet Recommended Diet: Regular OB Diet Procedures Procedures Performed: VIABLE FEMALE DELIVERED AT 0808 Pending Studies Studies pending at discharge: no Medical Emergencies . Who to Call and When: Medical Emergencies: If at any time you feel your situation is an emergency, please call 911 immediately. . Non-Emergent Contact Non-Emergency issues call your: Maintenance Painter Apprentice . . "Provider Documentation" section prepared by Juliet Arshad. . VTE Core Measure Inpt VTE Proph given/why not?: Treatment not indicated
[2017-04-08] MEDS ORDERED: DILTIAZEM HCL (TIAzac) 180 MG CAPCR PO SCH (08:00)
[2017-04-08] MEDS ORDERED: DILTIAZEM HCL 120 MG EXT REL CAP PO SCH (08:00)
[2017-04-08] MEDS ORDERED: RIZATRIPTAN BENZOATE 10 MG TAB PO PRN (08:15)
--- NOTE | 2017-04-08 08:36 | Anesthesiology Progress Note ---
Anesthesia Post Op Note Date & Time Apr 08, 2017 at 08:35 Vital Signs Pain Intensity: 5.0 Vital Signs Past 12 Hours Date Time Temp Pulse Resp B/P (MAP) Pulse Ox O2 Delivery O2 Flow Rate FiO2 04/08/17 07:38 96 Room Air 04/08/17 07:38 37.1 63 20 129/56 (80) 96 Room Air 04/08/17 04:15 36.8 72 16 113/53 (73) 96 Room Air 04/07/17 23:40 16 98 04/07/17 23:40 36.8 72 18 124/62 (82) 98 Room Air 04/07/17 23:40 98 Room Air 04/07/17 21:17 18 98 04/07/17 21:16 36.6 71 16 128/71 (90) 98 Room Air Notes Mental Status: alert / awake / arousable, participated in evaluation Pt Amnestic to Procedure: Yes Nausea / Vomiting: adequately controlled Pain: adequately controlled Airway Patency, RR, SpO2: stable & adequate BP & HR: stable & adequate Hydration State: stable & adequate Neuraxial Anesthesia: sensory block resolved Anesthetic Complications: no major complications apparent
[2017-04-08] MEDS: PRENATAL VITAMIN TAB PO SCH (09:03)
[2017-04-08] MEDS: SIMETHICONE 80 MG CHEW PO SCH ×4 (09:04→20:16)
[2017-04-08] MEDS: SERTRALINE HCL 50 MG TAB PO SCH (09:04)
[2017-04-08] MEDS: BuPROPion SR 150 MG TABCR PO SCH (09:04)
[2017-04-08] MEDS: DOCUSATE SODIUM 100 MG CAP PO SCH ×2 (09:04→20:17)
[2017-04-08] MEDS: DILTIAZEM HCL (TIAzac) 180 MG CAPCR PO SCH (20:16)
[2017-04-08] MEDS: DILTIAZEM HCL 120 MG EXT REL CAP PO SCH (20:16)
[2017-04-08 20:20] VITALS: BP 137/81
[2017-04-08] MEDS ORDERED: BISACODYL 5 MG TABEC PO ONE (22:00)
[2017-04-08 23:25] VITALS: BP 139/74; PULSE 63; TEMP 36.7; O2SAT 96
[2017-04-09] MEDS: OXYCODONE/ACETAMINOPHEN 5-325 TAB PO PRN ×5 (02:39→20:51)
[2017-04-09] MEDS: IBUPROFEN 600 MG TAB PO PRN ×5 (02:39→20:51)
--- NOTE | 2017-04-09 06:44 | Progress Note ---
Subjective Apr 09, 2017. Subjective conversation w/ patient, physical exam Ambulation: ambulating normally Voiding: no voiding problems Passing Gas: Yes Diet Tolerance: Regular Diet Lochia: Small Feeding Type: Bottle Feeding Pain: 5/10 (patient says well controlled with meds) Comment: Patient feeling much better today. Got a dose of dramamine yesterday and she felt much better afterwards. Her headaches have subsided and we talked about restarting topamax but we decided to hold off for now and to wait and see how bad her migraines are over the next couple weeks. Review of Systems Constitutional: No fever, No chills Respiratory: No cough, No shortness of breath Cardiac: + edema, No chest pain, No palpitations Abdomen: + pain, No nausea, No vomiting Objective Vital Signs Date Time Temp Pulse Resp B/P (MAP) Pulse Ox O2 Delivery O2 Flow Rate FiO2 04/08/17 23:25 36.7 63 18 139/74 (95) 96 Room Air 04/08/17 23:25 96 Room Air 04/08/17 20:20 137/81 (99) 04/08/17 16:25 Room Air 04/08/17 07:38 96 Room Air 04/08/17 07:38 37.1 63 20 129/56 (80) 96 Room Air Physical Exam General Appearance: WELL-APPEARING, NO APPARENT DISTRESS Respiratory/Chest: lungs clear, no accessory muscle use Cardiovascular: regular rate, rhythm, + systolic murmur, + normal peripheral pulses, + pertinent finding (peripheral oedema +1 up to ankles bilaterally) Abdomen: normal bowel sounds, non tender, soft Fundus: Firm, Non-Tender, Relation to Umbilicus (2 cm below) Incision Description: Clean, Dry & Intact Extremities: no calf tenderness, normal capillary refill Laboratory Results Last 24 Hours Test 04/08/17 07:10 04/09/17 06:00 Hemoglobin 12.6 g/dL Hematocrit 36.3 % Assessment and Plan Post-Op Day#: 1 Continue Routine Care: C Section Day 2 Vitals reviewed and stable A-, GBS-, Rubella immune (received Rhogam yesterday as baby Rhesus +) Hgb 12.6 yesterday Pain controlled with percocet Blood pressure well controlled Dizziness subsided with dramamine Patient doing well clinically CONTINUE ROUTINE POST C SECTION CARE
[2017-04-09 06:50] LABS: BASO % 0.3 %; BASO ABS # 0.04 K/uL (0-0.2); COMPLETE YES; EOS % 0.9 %; HEMATOCRIT 38.7 % (37-47); IG% 0.6 %; LYMPH ABS # 2.86 K/uL (1.2-3.4); MEAN CELL VOLUME 91.9 fL (80-100); MEAN CORPUSCULAR HEMOGLOBIN 29.5 pg (25-34); MEAN PLATELET VOLUME 9.8 fL (7.4-10.4); MONO % 7.1 %; NEUT % 67.1 %; PLATELET COUNT 219 K/uL (130-400); RED BLOOD COUNT 4.21 M/uL (4.2-5.4); WHITE BLOOD COUNT 11.93 K/uL (4.8-10.8)
[2017-04-09 07:15] VITALS: BP 116/70; PULSE 61; TEMP 36.6; O2SAT 97
[2017-04-09] MEDS: SERTRALINE HCL 50 MG TAB PO SCH (07:28)
[2017-04-09] MEDS: DOCUSATE SODIUM 100 MG CAP PO SCH ×2 (07:29→19:59)
[2017-04-09] MEDS: SIMETHICONE 80 MG CHEW PO SCH ×4 (07:29→19:59)
[2017-04-09] MEDS: BuPROPion SR 150 MG TABCR PO SCH (07:29)
[2017-04-09] MEDS: PRENATAL VITAMIN TAB PO SCH (07:29)
[2017-04-09 15:30] VITALS: BP 142/85; PULSE 67; TEMP 36.6
[2017-04-09 20:00] VITALS: BP 152/93
[2017-04-09] MEDS: DILTIAZEM HCL (TIAzac) 180 MG CAPCR PO SCH (20:00)
[2017-04-09] MEDS: DILTIAZEM HCL 120 MG EXT REL CAP PO SCH (20:00)
[2017-04-10] VITALS: BP 132/76; PULSE 72; TEMP 36.8; O2SAT 95
[2017-04-10] MEDS: IBUPROFEN 600 MG TAB PO PRN ×3 (01:32→10:36)
[2017-04-10] MEDS: OXYCODONE/ACETAMINOPHEN 5-325 TAB PO PRN ×3 (01:33→10:36)
[2017-04-10 07:25] VITALS: BP 136/74; PULSE 61; TEMP 36.8; O2SAT 97
--- NOTE | 2017-04-10 07:50 | Progress Note ---
Subjective Apr 10, 2017. Subjective conversation w/ patient Ambulation: ambulating normally Voiding: no voiding problems Passing Gas: Yes Diet Tolerance: Regular Diet Lochia: Moderate Feeding Type: Bottle Feeding Pain: controlled Review of Systems Constitutional: + problem reported (dizziness) Respiratory: No problem reported Cardiac: No problem reported Breast: No problem reported Abdomen: No problem reported Female : No problem reported Objective Vital Signs Date Time Temp Pulse Resp B/P (MAP) Pulse Ox O2 Delivery O2 Flow Rate FiO2 04/10/17 00:00 36.8 72 16 132/76 (94) 95 Room Air 04/10/17 00:00 95 Room Air 04/09/17 20:00 152/93 (112) 04/09/17 15:30 Room Air 04/09/17 15:30 36.6 67 16 142/85 (104) Room Air Physical Exam General Appearance: WELL-APPEARING, NO APPARENT DISTRESS Respiratory/Chest: normal breath sounds, no respiratory distress Cardiovascular: regular rate, rhythm Abdomen: non tender, soft Fundus: Firm Incision Description: Clean, Dry & Intact Extremities: normal inspection Assessment and Plan Post-Op Day#: 3 Continue Routine Care: POD#3 doing well Does complain of dizziness - this feels similar to when she tried Zoloft in the past, in September 2016. She is currently on Wellbutrin and Zoloft, with the Zoloft started in the hopes of preventing depression. We discussed that, because of being prescribed both of these medications and taking blood pressure medications, this dizziness is likely medication-related. She is going to see her PCP, who prescribes these medicines, tomorrow or Tuesday for followup and adjustment if needed. She is agreeable to this plan. Reviewed discharge instructions. She already received and filled postop pain meds rx.
[2017-04-10] MEDS: SIMETHICONE 80 MG CHEW PO SCH (07:59)
[2017-04-10] MEDS: DOCUSATE SODIUM 100 MG CAP PO SCH (07:59)
[2017-04-10] MEDS: SERTRALINE HCL 50 MG TAB PO SCH (08:00)
[2017-04-10] MEDS: BuPROPion SR 150 MG TABCR PO SCH (08:00)
[2017-04-10] MEDS: PRENATAL VITAMIN TAB PO SCH (08:00)
[2017-04-10 11:00] VITALS: BP_DIAS 74; PULSE 61; TEMP 36.8
--- NOTE | 2017-04-13 02:20 | DISCHARGE SUMMARY ---
HISTORY OF PRESENT ILLNESS: The patient is a 41-year-old, 3, para 1-0-1-1, white female, EDC of 04/17/2017, who presents at 39+ weeks for repeat section. She underwent the section without complications. Her postop course was complicated by dizziness and vertigo-type symptoms on her 1st postop day, as well as a migraine headache for which she has been treated in the past with Topamax. She was given a Dramamine and also Maxalt, as she is not . Her headache resolved and her dizziness was reduced. She was able to ambulate and void without difficulty. She was able to eat s regular diet, but then the dizziness has persisted and she then noted that when she has taken Zoloft in the past, she has had dizziness, the Zoloft that was started several days prior to delivery. She remained afebrile throughout her hospital course. Hemoglobin on admission was 13.9, hematocrit of 42.6, first postop day, hemoglobin 12.6, hematocrit of 36.3 and second postop day, hemoglobin 12.4, hematocrit 38.7. She was sent home in good condition with prescriptions for Percocet 1 or 2 tablets p.o. q. 4 hours p.r.n. pain, Motrin 600 mg p.o. q. 4 hours p.r.n. pain. She is to consult her primary care doctor, who has prescribed her Topamax and Zoloft as well as her Wellbutrin in the past, for adjustments in her medications and doses. She is to be seen in our office in 6 weeks for a followup visit. She is to call for a temperature of 101 degrees or higher, heavy vaginal bleeding, burning with urination, increased redness, drainage or pain in her incision and calf tenderness.
== END 2017-04-10 11:00 | disposition home or self-care (01) | DRG 765 ==
LOC: C.LD 05:25 → EDSTATUS 10:41 → C.OBG 11:13 → EDSTATUS 13:45
PROVIDERS: ADMIT Obstetrics & Gynecology; ATTEND Obstetrics & Gynecology
PROC: 10D00Z1 Extraction of Products of Conception, Low, Open Approach (ICD-10-PCS; principal; 2017-04-07 07:30)
DX: O34.211 Maternal care for low transverse scar from previous cesarean delivery (principal); O10.02 Pre-existing essential hypertension complicating childbirth; O99.354 Diseases of the nervous system complicating childbirth; O99.43 Diseases of the circulatory system complicating the puerperium; O99.284 Endocrine, nutritional and metabolic diseases complicating childbirth; N85.8 Other specified noninflammatory disorders of uterus; E83.119 Hemochromatosis, unspecified; O24.424 Gestational diabetes mellitus in childbirth, insulin controlled; O99.52 Diseases of the respiratory system complicating childbirth; J45.909 Unspecified asthma, uncomplicated; G47.33 Obstructive sleep apnea (adult) (pediatric); G43.909 Migraine, unspecified, not intractable, without status migrainosus; O99.344 Other mental disorders complicating childbirth; F32.9 Major depressive disorder, single episode, unspecified; F41.9 Anxiety disorder, unspecified; O26.893 Other specified pregnancy related conditions, third trimester; Z67.11 Type A blood, Rh negative; O99.63 Diseases of the digestive system complicating the puerperium; R11.0 Nausea; R01.1 Cardiac murmur, unspecified; R42 Dizziness and giddiness; O9A.23 Injury, poisoning and certain other consequences of external causes complicating the puerperium; T43.225A Adverse effect of selective serotonin reuptake inhibitors, initial encounter; Y92.230 Patient room in hospital as the place of occurrence of the external cause; Z37.0 Single live birth; Z3A.39 39 weeks gestation of pregnancy; Z79.4 Long term (current) use of insulin; Z79.899 Other long term (current) drug therapy

== ENCOUNTER → 2017-05-17 | Outpatient (CLI) | payer BC ==
[~2017-05-17] MED LIST changes: +BUTA1CAP17; +CLC100 PO; +DILT300C35; +MTR600X PO; +OXYC-57 PO; +PREN1TAB29; -PRENTAB26 PO; -RIZA10TA18 PO; +SERT25TA PO
== END | disposition home or self-care (01) ==
LOC: C.PAPS 13:58
PROVIDERS: ATTEND Obstetrics & Gynecology
DX: Z01.419 Encounter for gynecological examination (general) (routine) without abnormal findings (principal)

== ENCOUNTER → 2017-05-17 | Outpatient (CLI) | payer BC | END | disposition home or self-care (01) | LOC: C.LABSPEC 14:52 | PROVIDERS: ATTEND Obstetrics & Gynecology | DX: T81.4XXA Infection following a procedure, initial encounter (principal); Y83.9 Surgical procedure, unspecified as the cause of abnormal reaction of the patient, or of later complication, without mention of misadventure at the time of the procedure; Z01.419 Encounter for gynecological examination (general) (routine) without abnormal findings ==

== ENCOUNTER → 2017-07-18 | Outpatient (CLI) | payer BC ==
--- NOTE | 2017-07-18 16:35 | DIAGNOSTIC IMAGING REPORT ---
CHEST 2 VIEWS ROUTINE CLINICAL HISTORY: Atypical chest pain COMPARISON STUDY: 05/01/2013 FINDINGS: The cardiac and mediastinal contours are normal. There is no evidence of focal pulmonary consolidation. There is no evidence of failure. No pleural effusions are visualized.[ IMPRESSION: No active disease in the chest. Electronically signed by: Marcio Anderson M.D. 07/18/2017 4:34 PM Dictated Date/Time: 07/18/2017 4:34 PM
[2017-07-18 18:14] LABS: CKMB/CK RATIO 1.1 (0-3.0)
[2017-07-20 14:26] LABS: C-REACTIVE PROT HIGHSEN 1.1 MG/L
== END | disposition home or self-care (01) ==
LOC: C.RAD1850 16:20
PROVIDERS: ATTEND Family Medicine
DX: R07.9 Chest pain, unspecified (principal)